=== PATIENT | female | born 1955 | race Two or more races ===

== ENCOUNTER 2017-09-19 19:28 | Emergency (ER) | payer OTHER ==
[~2017-09-19] VITALS: Ht 149.9 cm; Wt 63.5 kg
[2017-09-19] MEDS ORDERED: VIT D2 1.25 MG (50,000 UNIT) (20:29)
[2017-09-19] MEDS ORDERED: [UNRECOGNIZED DRUG - CODE] (20:29)
[2017-09-19] MEDS ORDERED: ACETAMINOPHEN 325 MG TABLET PO ONE (20:45)
[2017-09-19] MEDS ORDERED: ACETAMINOPHEN 325 MG TABLET ONE (21:10)
--- NOTE | 2017-09-19 22:47 | NUR ---
Patient discharged to home in stable conditon. Written and verbal after care instructions given. Patient verbalizes understanding of instructions.
== END 2017-09-19 22:48 | disposition home or self-care (01) ==
LOC: ER 19:29
DX: S06.0X0A Concussion without loss of consciousness, initial encounter (principal); I25.10 Atherosclerotic heart disease of native coronary artery without angina pectoris; K21.9 Gastro-esophageal reflux disease without esophagitis; Z88.0 Allergy status to penicillin; V43.52XA Car driver injured in collision with other type car in traffic accident, initial encounter; Y92.89 Other specified places as the place of occurrence of the external cause; Y93.89 Activity, other specified; Y99.8 Other external cause status
CPT/HCPCS: 70450; 72125; A4663